=== PATIENT | male | born 1980 | race Caucasian/White ===

== ENCOUNTER 2021-01-23 13:12 | Emergency (ER) | payer OTHER ==
[2021-01-23 13:40] VITALS: RESP 18
--- NOTE | 2021-01-23 15:58 | ED ---
General Adult HPI - General Chief complaint: Urogenital Stated complaint: testicle pain Time Seen by Provider: 01/23/21 15:00 Source: patient, RN notes reviewed, old records reviewed Mode of arrival: ambulatory Limitations: no limitations - History of Present Illness Initial comments: This is a 40-year-old male who presents emergency department stating that since Thursday he has had a swollen scrotum. Patient states it seems more swollen on the left than the right but overall it's much bigger. Patient states about the size of a softball when is normally the size of a lemon. Patient states he believes the left testicle is a little more tender than normal. Patient denies any fever chills patient denies dysuria hematuria urinary frequency. Patient denies any trauma to the testicle he states he did notice at one point he was in a seated position that was extremely tight and he got up after that notices testicle was hurting so to reposition himself and later he noticed a big his scrotum was. Patient denies any history of similar. - Related Data Allergies Allergy/AdvReac Type Severity Reaction Status Date / Time peanut Allergy Rash/Hives Verified 01/23/21 13:40 Review of Systems ROS Statement: Those systems with pertinent positive or pertinent negative responses have been documented in the HPI. ROS Other: All systems not noted in ROS Statement are negative. Past Medical History Past Medical History: No Reported History History of Any Multi-Drug Resistant Organisms: None Reported Past Surgical History: No Surgical Hx Reported Past Psychological History: No Psychological Hx Reported Smoking Status: Never smoker Past Alcohol Use History: Occasional Past Drug Use History: None Reported General Exam - General Exam Comments Initial Comments: GENERAL Patient is well-developed and well-nourished. Patient is in mild distress. EYES Patient's pupils are equal and round. Extraocular motion is intact SKIN Unremarkable GENITALIA On examination scrotum is about 12 cm in diameter appears to be equally distributed testicles can felt on both sides none appeared exquisitely tender or enlarged. NEUROLOGICAL The patient is alert and oriented 3 PYSCH Patient has normal interpersonal interactions. MUSCULOSKELETAL All 4 times and full range of motion Limitations: no limitations Course Vital Signs 01/23/21 13:36 Temperature 98.4 F Pulse Rate 104 H Respiratory 18 Rate Blood Pressure 160/93 Medical Decision Making - Medical Decision Making Ultrasound showed a hydrocele as well as a varicocele. Also shows some edema of the scrotum. Patient's not sure how long there has been edema. Patient will follow-up with urology. Disposition Clinical Impression: Hydrocele, Varicocele Disposition: HOME SELF-CARE Condition: Good Instructions (If sedation given, give patient instructions): Hydrocele (ED), Varicocele (ED) Is patient prescribed a controlled substance at d/c from ED?: No Referrals: Bryant Joaquin MD [STAFF PHYSICIAN] - 1-2 days Time of Disposition: 17:47
--- NOTE | 2021-01-23 16:30 | US ---
EXAMINATION TYPE: US scrotum with doppler. Grayscale and color Doppler Duplex imaging performed of eduardo staton scrotum. DATE OF EXAM: 01/23/2021 COMPARISON: NONE CLINICAL HISTORY: Swollen scrotum. EXAM MEASUREMENTS: TESTICLES: Right Testicle: 5.0 x 2.6 x 3.4 cm Left Testicle: 4.4 x 2.8 x 3.5 cm EPIDIDYMIS HEAD: Right Epididymis: 1.0 x 1.0 cm Left Epididymis: 1.5 x 1.2 cm Doppler performed to assess for testicular vascularity; good bilateral color flow and waveforms are s een. Presence of hydroceles: fluid seen around left testicle Presence of varicoceles: posterior to left testicle, increased flow with valsalva. There is diffuse scrotal sac edema noted. Testicles symmetric and within normal limits in size. Satis factory blood flow bilaterally. More focal inflammatory change felt present posterior to the left marta ticle in the left scrotum with increased vascularity. Small asymmetric left-sided scrotal fluid colle ction or hydrocele. IMPRESSION: As above.
[2021-01-23 19:09] VITALS: BP 134/65; PULSE 72; TEMP 98.1
== END 2021-01-23 18:30 | disposition home or self-care (01) ==
LOC: EC 13:12
DX: N43.3 Hydrocele, unspecified (principal); I86.1 Scrotal varices; Z91.010 Allergy to peanuts
CPT/HCPCS: 76870; 93975; 99284

== ENCOUNTER 2021-08-13 15:50 | Emergency (ER) | payer OTHER ==
[2021-08-13 16:58] VITALS: RESP 18; TEMP 98
[2021-08-13] MEDS ORDERED: ceFAZolin 1,000 MG VIAL (IM USE) IM STA (20:13)
[2021-08-13] MEDS ORDERED: LIDOCAINE 1% INJ 10MG/ML (20 ML MDV) SQ ONE (20:14)
[2021-08-13] MEDS ORDERED: DIPH,PERTUS(ACELL)TETVAC-LF 0.5 ML VIAL IM ONE (20:19)
[2021-08-13] MEDS ORDERED: BUPIVACAINE (PF) 0.5% 30 ML VIAL SQ STA (20:31)
--- NOTE | 2021-08-13 20:33 | XR ---
RESULT: HISTORY: pointer finger injury TECHNIQUE: 3 views of the left index finger were obtained. COMPARISON: None. FINDINGS: There is mildly comminuted and displaced fracture of the index finger distal phalangeal tuft with ove rlying soft tissue injury/defect. No evidence of dislocation. No definite radiopaque foreign body. IMPRESSION: Index finger distal phalangeal tuft fracture with associated soft tissue injury.
[2021-08-13 21:31] VITALS: BP 142/82; PULSE 98
--- NOTE | 2021-08-13 21:52 | ED ---
Wound/Laceration HPI - General Chief Complaint: Wound/Laceration Stated Complaint: LT pointer finger injury Time Seen by Provider: 08/13/21 18:56 Source: patient Mode of arrival: ambulatory Limitations: no limitations - History of Present Illness Initial Comments: Patient is a 41-year-old male who presents to the emergency department with a chief complaint of left index finger injury. Patient was at work today when he cut his finger on a machine. Patient is not on blood thinners. Last tetanus shot is unknown. Patient denies numbness or tingling of the left wrist, left hand, all 5 fingers. He is able to move his left index finger without limitation. - Related Data Previous Rx's Medication Instructions Recorded Cephalexin [Keflex] 500 mg PO Q6HR 7 Days #28 cap 08/13/21 Allergies Allergy/AdvReac Type Severity Reaction Status Date / Time peanut Allergy Rash/Hives Verified 08/13/21 16:58 Review of Systems ROS Statement: Those systems with pertinent positive or pertinent negative responses have been documented in the HPI. ROS Other: All systems not noted in ROS Statement are negative. Past Medical History Past Medical History: No Reported History History of Any Multi-Drug Resistant Organisms: None Reported Past Surgical History: No Surgical Hx Reported Past Psychological History: No Psychological Hx Reported Smoking Status: Never smoker Past Alcohol Use History: Occasional Past Drug Use History: None Reported General Exam Limitations: no limitations Head exam: Present: atraumatic, normocephalic, normal inspection Neck exam: Present: normal inspection Respiratory exam: Present: normal lung sounds bilaterally. Absent: respiratory distress, wheezes, rales, rhonchi, stridor Cardiovascular Exam: Present: normal rhythm, tachycardia GI/Abdominal exam: Present: soft, normal bowel sounds. Absent: distended, tenderness, guarding, rebound, rigid Left Hand Wrist exam: Present: other (Laceration of the posterior distal left index finger across the nail bed. Neurovascularly intact. Range of motion of the left hand and left index finger) Neuro motor exam: Present: wrist extension intact, thumb opposition intact, fingers 2-5 abduction intact Vascular: Present: normal capillary refill. Absent: vascular compromise, pulse deficit radial art, pulse deficit ulnar art Neurological exam: Present: alert, oriented X3, CN II-XII intact Psychiatric exam: Present: normal affect, normal mood Course Vital Signs 08/13/21 08/13/21 16:55 20:10 Temperature 98.0 F Pulse Rate 110 H 98 Respiratory 18 18 Rate Blood Pressure 159/85 142/82 O2 Sat by Pulse 92 L 92 L Oximetry Procedures - Laceration Laceration #1 Consent Obtained: verbal consent Indication: laceration Site: other (Left index finger) Size (cm): 3 Description: irregular Depth: simple, single layer Anesthesia Technique: nerve block (Marcaine ) Pre-repair: wound explored, irrigated extensively, deep structures intact Type of Sutures: nylon, vicryl Size of Sutures: 5-0 Number of Sutures: 8 Technique: simple, interrupted Patient Tolerated Procedure: no complications Additional Comments: 6 nylon sutures were used to approximate the skin. 2 Vicryl sutures were used to approximate the nail. - Orthopedic Splinting/Casting Injury #1 Upper Extremity Injury Location: finger (left index) Upper Extremity Immobilizer: aluminum form splint Medical Decision Making - Medical Decision Making This is a 41-year-old male who presents with left index finger laceration. Thorough history and examination were performed. Patient is neurovascularly intact. He denies numbness and tingling of the left hand and left index finger. He has full range of motion of the left hand and left index finger. Left finger x-ray reveals distal phalangeal tuft fracture with associated soft tissue injury. Patient was given tetanus and Kefzol in the emergency department. The wound was explored and irrigated extensively. A nerve block was performed. I used 6 5-0 nylon sutures to approximate the skin and 2 5-0 Vicryl sutures to approximate the nail bed. There were no complications such as severe pain or bleeding. Wound was then dressed with non-adherent dressing and placed in an aluminum form splint. Patient was prescribed Keflex and wound education was provided. Patient will be discharged with instruction to follow up with lead sustainability specialist at earliest available appointment. Return parameters discussed. Patient verbalizes understanding and is agreeable to plan. Dr. Marin is my attending. Disposition Clinical Impression: Laceration Disposition: HOME SELF-CARE Condition: Good Instructions (If sedation given, give patient instructions): Care For Your Stitches (ED) Additional Instructions: Take antibiotic as prescribed. Follow-up with lead sustainability specialist at earliest available appointment. You may change the wound dressing in 24-48 hours. Return to the emergency department if you experience new, concerning, or worsening symptoms, occluding but not limited to increase redness, swelling, and pain around the wound or fever/chills. Prescriptions: Cephalexin [Keflex] 500 mg PO Q6HR 7 Days #28 cap Is patient prescribed a controlled substance at d/c from ED?: No Referrals: Laureano Trevino DO [Primary Care Provider] - 1-2 days Ritchie Davenport DO [Doctor of Osteopathic Medicine] - 1-2 days Time of Disposition: 21:53
== END 2021-08-13 22:18 | disposition home or self-care (01) ==
LOC: EC 15:50
DX: S61.211A Laceration without foreign body of left index finger without damage to nail, initial encounter (principal); W26.8XXA Contact with other sharp object(s), not elsewhere classified, initial encounter; Y99.0 Civilian activity done for income or pay
CPT/HCPCS: 73140; 90715; 12002; 99283; 96372; 90471; J0690; J2001

== ENCOUNTER 2021-10-11 14:35 | Inpatient (IN) | payer OTHER ==
[2021-10-11 18:44] LABS: Anisocytosis Slight; Basophils # (A) 0.1 k/uL (0-0.2); Basophils % (A) 1 %; Eosinophils # (A) 0.4 k/uL (0-0.7); Eosinophils % (A) 5 %; HGB 16.7 gm/dL (13.0-17.5); Hypochromasia Marked; Lymphocytes # (A) 1.2 k/uL (1.0-4.8); Lymphocytes % (A) 16 %; MCH 24.8 pg (25.0-35.0); MCHC 30.1 g/dL (31.0-37.0); MCV 82.6 fL (80.0-100.0); Mean Platelet Volume 6.6; Monocytes # (A) 0.4 k/uL (0-1.0); Monocytes % (A) 5 %; Neutrophils # (A) 5.5 k/uL (1.3-7.7); Neutrophils % (A) 70 %; Platelet Count 257 k/uL (150-450); Poikilocytosis Slight; RBC 6.72 m/uL (4.30-5.90); RDW 17.3 % (11.5-15.5); WBC 7.8 k/uL (3.8-10.6)
[2021-10-11 18:53] LABS: ALT 18 U/L (4-49); AST 23 U/L (17-59); African American GFR (CKD) >90 (>60 ml/min/1.73 sqM); Albumin 4.1 g/dL (3.5-5.0); Alkaline Phosphatase 83 U/L (38-126); Anion Gap 5 mmol/L; Blood Urea Nitrogen 12 mg/dL (9-20); Calcium 8.7 mg/dL (8.4-10.2); Carbon Dioxide 37 mmol/L (22-30); Chloride 96 mmol/L (98-107); Glucose 90 mg/dL (74-99); Non-African American GFR(CKD) >90 (>60 ml/min/1.73 sqM); Potassium 4.5 mmol/L (3.5-5.1); Sodium 138 mmol/L (137-145); Total Bilirubin 0.7 mg/dL (0.2-1.3)
[2021-10-11 18:56] LABS: HCT 55.5 % (39.0-53.0)
--- NOTE | 2021-10-11 19:16 | XR ---
EXAMINATION TYPE: XR chest 2V DATE OF EXAM: 10/11/2021 6:59 PM COMPARISON: None TECHNIQUE: XR chest 2V Portable AP radiograph of the chest.. CLINICAL INDICATION:Male, 41 years old with history of low pulse ox; FINDINGS: Lungs/Pleura: Low lung volumes are present. Scattered subtle reticular and hazy opacities. No evidenc e of pneumothorax, focal consolidation or pleural effusion. Pulmonary vascularity: Unremarkable. Heart/mediastinum: Cardiomediastinal silhouette is unremarkable. Musculoskeletal: No acute osseous pathology. IMPRESSION: Subtle scattered opacities which may represent an atypical pneumonia.
--- NOTE | 2021-10-11 20:47 | CT ---
EXAMINATION TYPE: CT chest angio for PE CT DLP: 1067.2 mGycm, Automated exposure control for dose reduction was used. DATE OF EXAM: 10/11/2021 8:12 PM COMPARISON: Chest radiograph from same day. CLINICAL INDICATION:Male, 41 years old with history of hypoxia tachycardia; h/o OLIMPIA TECHNIQUE/CONTRAST: CTA scan of the thorax is performed with IV Contrast, patient injected with 90 mL of Isovue 370, pulm onary embolism protocol. MIP images are created and reviewed. FINDINGS: Pulmonary Artery: There is no evidence for a filling defect within the pulmonary vasculature to sugge st acute pulmonary embolism. The pulmonary artery is of normal size. Lungs/Pleura: Scattered air cysts are seen throughout the lung parenchyma. Largest cyst measuring 26 mm Airway: Large airways are patent. Heart: Heart is within normal limits for size.. Vasculature: No evidence of aortic aneurysm. Mediastinum: No gross evidence of adenopathy. Musculoskeletal: No acute osseous abnormalities Soft Tissues: Unremarkable. Lower neck: No significant findings. Upper Abdomen: Partially visualized and enlarged measuring up to at least 15.8 cm. IMPRESSION: 1. No evidence of pulmonary embolism. 2. Scattered thin-walled air cysts are seen throughout the lungs. This is relatively nonspecific find ing. This could represent Langerhans cell histiocytosis, correlate for smoking history. Additional co nsiderations include Lymphangioleiomyomatosis versus other etiologies. Consider follow-up with pulmon ologist.
--- NOTE | 2021-10-11 21:35 | ED ---
General Adult HPI - General Chief complaint: Shortness of Breath Stated complaint: OLIMPIA Time Seen by Provider: 10/11/21 17:54 Source: patient Mode of arrival: ambulatory Limitations: no limitations - History of Present Illness Initial comments: Patient is a 33-year-old male who presents for evaluation of hypoxia. Patient was at his primary care provider today for a routine checkup where his pulse ox was found to be 87% on room air. Patient was then sent to the emergency department. Patient states he is feeling well with no concerns. He denies feve r, chills, upper respiratory symptoms, shortness of breath, chest pain, palpitations, lightheadedness, dizziness, abdominal pain, nausea, vomiting, and leg pain/swelling. Patient denies any past medical history. No history of DVT, PE, or cancer. No family history of DVT or PE. No blood disorders or recent surgery. He denies past and current use of tobacco. 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 He states he is moderately active at work. - Related Data Home Medications Medication Instructions Recorded Confirmed Furosemide [Lasix] 20 mg PO DAILY 10/11/21 10/11/21 Allergies Allergy/AdvReac Type Severity Reaction Status Date / Time peanut Allergy Rash/Hives Verified 10/11/21 18:23 Review of Systems ROS Statement: Those systems with pertinent positive or pertinent negative responses have been documented in the HPI. ROS Other: All systems not noted in ROS Statement are negative. Past Medical History Past Medical History: No Reported History History of Any Multi-Drug Resistant Organisms: None Reported Past Surgical History: No Surgical Hx Reported Past Psychological History: No Psychological Hx Reported Smoking Status: Never smoker Past Alcohol Use History: Occasional Past Drug Use History: None Reported General Exam Limitations: no limitations General appearance: alert, in no apparent distress Head exam: Present: atraumatic, normocephalic, normal inspection Eye exam: Present: normal appearance, PERRL, EOMI. Absent: scleral icterus, conjunctival injection, periorbital swelling Respiratory exam: Present: normal lung sounds bilaterally. Absent: respiratory distress, wheezes, rales, rhonchi, stridor Cardiovascular Exam: Present: normal rhythm, tachycardia. Absent: systolic murmur, diastolic murmur, rubs, gallop, JVD, S3, S4 GI/Abdominal exam: Present: soft, normal bowel sounds. Absent: distended, tenderness, guarding, rebound, rigid Extremities exam: Present: normal inspection, full ROM, normal capillary refill. Absent: tenderness, pedal edema, joint swelling, calf tenderness Neurological exam: Present: alert, oriented X3, CN II-XII intact Psychiatric exam: Present: normal affect, normal mood Skin exam: Present: warm, dry, intact, normal color. Absent: rash Course Vital Signs 10/11/21 10/11/21 10/11/21 14:39 18:30 19:43 Temperature 98.7 F Pulse Rate 107 H 110 H 104 H Respiratory 18 22 20 Rate Blood Pressure 149/76 154/105 148/108 O2 Sat by Pulse 87 L 95 95 Oximetry 10/11/21 20:57 Temperature Pulse Rate 105 H Respiratory 18 Rate Blood Pressure 144/104 O2 Sat by Pulse 95 Oximetry EKG Findings - EKG Comments: EKG Findings:: EKG taken at 18:42. Sinus tachycardia with short [place] interval, possible right ventricular hypertrophy. Ventricular rate 108. [place] interval 116. QRS duration 82. QTC 383 Medical Decision Making - Medical Decision Making This is a 41-year-old otherwise healthy male who presents for evaluation of hypoxia. Thorough history and examination were provided. Patient was at his primary care provider's office today for a routine checkup where his pulse ox was found to be 87% on room air. Patient feels well and has no complaints. Denies history of DVT and PE. During my evaluation patient is tachycardic and hypoxic. Pulse ox is 89% on room air. Patient was placed on 2 L of oxygen supplementation via nasal cannula with improvement in pulse ox. Pulse is 110. Lungs are clear to auscultation bilaterally. There is no erythema, swelling, or tenderness of the bilateral lower extremities. With patient's tachycardia and hypoxia, somewhat sedentary lifestyle, obesity, and normal pulmonary exam, there is concern for pulmonary embolism. CTA of the chest was obtained which showed no evidence of pulmonary embolism. There is scattered thin-walled air cyst seen throughout the lungs which is a relatively nonspecific finding that could represent Langerhans cell histiocytosis. During patient's emergency stay pulse ox did vary from 91% to 96% on 2 L nasal cannula. Patient remained asymptomatic with no shortness of breath or chest pain. Patient was consistently tachycardic in the low 100s. Case discussed with Dr. Jenkins. Patient will be admitted to her service with pulmonary consult. Results discussed with patient who verbalizes understanding and is agreeable to this plan. Dr. Ham is my attending. - Lab Data Result diagrams: 10/11/21 18:23 10/11/21 18:23 Lab Results 10/11/21 10/11/21 10/11/21 Range/Units 18:23 18:23 20:00 WBC 7.8 (3.8-10.6) k/uL RBC 6.72 H (4.30-5.90) m/uL Hgb 16.7 (13.0-17.5) gm/dL Hct 55.5 H (39.0-53.0) % MCV 82.6 (80.0-100.0) fL MCH 24.8 L (25.0-35.0) pg MCHC 30.1 L (31.0-37.0) g/dL RDW 17.3 H (11.5-15.5) % Plt Count 257 (150-450) k/uL MPV 6.6 Neutrophils % 70 % Lymphocytes % 16 % Monocytes % 5 % Eosinophils % 5 % Basophils % 1 % Neutrophils # 5.5 (1.3-7.7) k/uL Lymphocytes # 1.2 (1.0-4.8) k/uL Monocytes # 0.4 (0-1.0) k/uL Eosinophils # 0.4 (0-0.7) k/uL Basophils # 0.1 (0-0.2) k/uL Hypochromasia Marked Poikilocytosis Slight Anisocytosis Slight D-Dimer 0.33 (<0.60) mg/L FEU Sodium 138 (137-145) mmol/L Potassium 4.5 (3.5-5.1) mmol/L Chloride 96 L (98-107) mmol/L Carbon Dioxide 37 H (22-30) mmol/L Anion Gap 5 mmol/L BUN 12 (9-20) mg/dL Creatinine 0.64 L (0.66-1.25) mg/dL Est GFR (CKD-EPI)AfAm >90 (>60 ml/min/1.73 sqM) Est GFR (CKD-EPI)NonAf >90 (>60 ml/min/1.73 sqM) Glucose 90 (74-99) mg/dL Calcium 8.7 (8.4-10.2) mg/dL Total Bilirubin 0.7 (0.2-1.3) mg/dL AST 23 (17-59) U/L ALT 18 (4-49) U/L Alkaline Phosphatase 83 (38-126) U/L Total Protein 8.0 (6.3-8.2) g/dL Albumin 4.1 (3.5-5.0) g/dL Disposition Clinical Impression: Hypoxia, Tachycardia Disposition: ADMITTED IP TO THIS HOSP Condition: Fair Referrals: Laureano Trevino DO [Primary Care Provider] - 1-2 days Decision Time: 22:36
[2021-10-12] MEDS: FUROSEMIDE 20 MG TAB PO SCH (12:55)
--- NOTE | 2021-10-12 13:07 | P.CNPUL ---
History of Present Illness Consult date: 10/12/21 Requesting physician: Erna Jenkins Reason for consult: hypoxemia Chief complaint: Shortness of breath History of present illness: This is a pleasant morbidly obese 41-year-old male patient with a known history of chronic lower extremity edema, recent diagnosis of obstructive sleep apnea and was initiated on CPAP. While at his PCPs office for regular checkup he was found to be hypoxemic with an O2 saturation of 87% on room air. He was referred here to the emergency room for the same. He denied any shortness of breath, cough or congestion. No fever or chills. No hemoptysis. Chest x-ray revealed subtle scattered opacities representing possibly an atypical pneumonia. CT angiogram ruled out pulmonary embolism. There was scattered thin-walled air cysts seen throughout the lungs. Nonspecific findings. Within the differential possible Langerhans cell histiocytosis or possibly lymphangioleiomyomatosis. He is a lifelong nonsmoker. White count 7.8. Hemoglobin 16.7. Platelets 257. D- dimer 0.33. Sodium 138. Potassium 4.5. BUN 12. Creatinine 0.63. Butcher virus by PCR not detected. He is seen today in consultation on the regular medical floor. He is currently resting comfortably in bed. Awake and alert in no acute distress. He denies any shortness of breath, cough or congestion. No fever chills. He is maintaining O2 saturations in the 90s on 6 L nasal cannula. He is continued on oral Lasix. Review of Systems REVIEW OF SYSTEMS: CONSTITUTIONAL: Denies any recent significant weight loss or weight gain. EYES: Denies change in vision. EARS, NOSE, MOUTH, THROAT: Denies headaches, denies sore throat. CARDIOVASCULAR: Denies chest pain, palpitations or syncopal episodes. RESPIRATORY: Denies shortness of breath, cough, congestion or hemoptysis. GASTROINTESTINAL: Denies change in appetite, denies abdominal pain GENITOURINARY: Denies hematuria, denies infections. MUSKULOSKELETAL: Denies pain, denies swelling. INTEGUMENTARY: Denies rash, denies eczema. NEUROLOGICAL: Denies recent memory loss, no recent seizure activity. PSYCHIATRIC: Denies anxiety, denies depression. HEMATOLOGIC/LYMPHATIC: Denies anemia, denies enlarged lymph nodes. Past Medical History Past Medical History: Asthma History of Any Multi-Drug Resistant Organisms: None Reported Past Surgical History: No Surgical Hx Reported Additional Past Anesthesia/Blood Transfusion Reaction / Comment(s): never recieved blood or anesthesia Past Psychological History: No Psychological Hx Reported Smoking Status: Never smoker Past Alcohol Use History: Occasional Past Drug Use History: None Reported - Past Family History Mother Family Medical History: Diabetes Mellitus Father Family Medical History: Asthma, Coronary Artery Disease (CAD), Myocardial Infarction ([place]) Medications and Allergies Home Medications Medication Instructions Recorded Confirmed Type Furosemide [Lasix] 20 mg PO DAILY 10/11/21 10/11/21 History Allergies Allergy/AdvReac Type Severity Reaction Status Date / Time peanut Allergy Rash/Hives Verified 10/11/21 18:23 Physical Exam Vitals: Vital Signs Temp Pulse Pulse Pulse Resp BP BP 10/12/21 07:29 98.4 F 85 17 108/55 10/12/21 01:57 97.7 F 102 H 18 139/87 10/12/21 00:06 92 20 10/11/21 22:58 92 18 155/95 10/11/21 22:13 101 H 18 155/94 10/11/21 20:57 105 H 18 144/104 10/11/21 19:43 104 H 20 148/108 10/11/21 18:30 110 H 22 154/105 10/11/21 14:39 98.7 F 107 H 18 149/76 Pulse Ox 10/12/21 07:29 94 L 10/12/21 01:57 98 10/12/21 00:06 10/11/21 22:58 93 L 10/11/21 22:13 95 10/11/21 20:57 95 10/11/21 19:43 95 10/11/21 18:30 95 10/11/21 14:39 87 L Intake and Output 10/11/21 10/12/21 10/12/21 22:59 06:59 14:59 Other: # Voids 0 Weight 166.922 kg GENERAL EXAM: Alert, pleasant, morbidly obese 41-year-old male patient on 6 L nasal cannula, comfortable in no apparent distress. HEAD: Normocephalic. EYES: Normal reaction of pupils, equal size. NOSE: Clear with pink turbinates. THROAT: No erythema or exudates. NECK: No masses, no JVD. CHEST: No chest wall deformity. LUNGS: Equal air entry with no crackles, wheeze, rhonchi or dullness. CVS: S1 and S2 normal with no audible murmur, regular rhythm. ABDOMEN: No hepatosplenomegaly, normal bowel sounds, no guarding or rigidity. SPINE: No scoliosis or deformity SKIN: No rashes CENTRAL NERVOUS SYSTEM: No focal deficits, tone is normal in all 4 extremities. EXTREMITIES: Changes of chronic venous stasis. There is 1+ peripheral edema. Peripheral pulses are intact. Results - Laboratory Findings CBC and BMP: 10/11/21 18:23 10/11/21 18:23 PT/INR, D-dimer D-Dimer 0.33 mg/L FEU (<0.60) 10/11/21 20:00 Abnormal lab findings: Abnormal Labs 10/11/21 10/11/21 18:23 18:23 RBC 6.72 H Hct 55.5 H MCH 24.8 L MCHC 30.1 L RDW 17.3 H Chloride 96 L Carbon Dioxide 37 H Creatinine 0.64 L - Diagnostic Findings Chest x-ray: image reviewed CT scan - chest: image reviewed Assessment and Plan Assessment: 1 Acute hypoxemic respiratory failure secondary to morbid obesity with hypoventilation syndrome and obstructive sleep apnea 2 Severe obstructive sleep apnea with an AHI of 51. Initiated on CPAP just this week 3 Morbid obesity with a BMI of 56.0 kg/m 4 Possible pulmonary hypertension from THOMAS. Echocardiogram pending 5 Scattered thin-walled air cysts seen throughout the lungs. Nonspecific finding. Doubt Langerhans' cell histiocytosis, lifelong nonsmoker 6 Chronic lower extremity edema with changes of chronic venous stasis 7 Polycythemia secondary to above Plan: The patient was seen and evaluated Chest x-ray, CAT scan and labs reviewed Cleared for discharge from the pulmonary standpoint Will need to be evaluated for home oxygen Educated regarding the importance of compliance with the CPAP Follow-up in our office with Dr. Moreno I have personally seen and examined the patient, performed the documentation and the assessment and plan as written. Number of minutes spent on the visit: 10.
--- NOTE | 2021-10-12 15:07 | CA ---
Transthoracic Echo Report Name: Alvaro Robbins Age: 41 Gender: M : 1980 Exam Date: 10/12/2021 07:34 Exam Location: [facility] Ht (in): 68 Wt (lb): 368 Ordering Physician: Isabelle Marino MD Attending/Referring Phys: [employer] Maintenance Supervisor Gloria Flores RDCS Procedure CPT: Indications: pulm htn hypoxia Cardiac Hx: Technical Quality: Technically difficult study Contrast 1: Lumason Total Dose (mL): 4 Contrast 2: Total Dose (mL): MEASUREMENTS (Male / Female) Normal Values 2D ECHO LV Diastolic Diameter PLAX 3.6 cm 4.2 - 5.9 / 3.9 - 5.3 cm LV Systolic Diameter PLAX 2.5 cm IVS Diastolic Thickness 1.8 cm 0.6 - 1.0 / 0.6 - 0.9 cm LVPW Diastolic Thickness 1.6 cm 0.6 - 1.0 / 0.6 - 0.9 cm LV Relative Wall Thickness 1.0 RV Internal Dim ED PLAX 3.5 cm LA Systolic Diameter LX 3.9 cm 3.0 - 4.0 / 2.7 - 3.8 cm M-MODE Aortic Root Diameter MM 3.7 cm MV E Point Septal Separation 1.1 cm AV Cusp Separation MM 2.3 cm DOPPLER AV Peak Velocity 147.2 cm/s AV Peak Gradient 8.7 mmHg MV Area PHT 3.4 cm??? Mitral E Point Velocity 102.6 cm/s Mitral A Point Velocity 98.8 cm/s Mitral E to A Ratio 1.0 MV Deceleration Time 220.4 ms MV E' Velocity 7.4 cm/s Mitral E to MV E' Ratio 13.8 TR Peak Velocity 268.7 cm/s TR Peak Gradient 28.9 mmHg Right Ventricular Systolic Press 33.9 mmHg FINDINGS Left Ventricle Left ventricular ejection fraction is estimated at 60-65 %. Left ventricular cavity size normal. No obvious regional wall motion abnormalities. Severe concentric left ventricular hypertrophy. Right Ventricle Mild right ventricular dilatation. Mild pulmonary hypertension. Right Atrium Normal right atrial size. Left Atrium Normal left atrial size. Mitral Valve Mitral annular calcification. Structurally normal mitral valve. No mitral stenosis, regurgitation or prolapse. Aortic Valve Trileaflet aortic valve. No aortic valve stenosis or regurgitation. Tricuspid Valve Mild tricuspid regurgitation. Pulmonic Valve Trace pulmonic regurgitation. Pericardium No pericardial effusion. Aorta Normal size aortic root and proximal ascending aorta. CONCLUSIONS Technically difficult study for interpretation The ejection fraction appears to be within normal limits. Definity was used The right ventricle appeared to be dilated Thickened mitral valve leaflets Previewed by: Dr. Bubba Terry MD (Electronically Signed) Final Date: 12 Oct 2021 15:05
--- NOTE | 2021-10-12 21:29 | P.HPIM ---
History of Present Illness H&P Date: 10/12/21 Chief Complaint: Shortness of breath 41-year-old male patient with a known history of chronic lower extremity edema, recent diagnosis of obstructive sleep apnea and was initiated on CPAP. While at his PCPs office for regular checkup he was found to be hypoxemic with an O2 sa turation of 87% on room air. He was referred here to the emergency room for the same. He denied any shortness of breath, cough or congestion. No fever or chills. No hemoptysis. Chest x-ray revealed subtle scattered opacities representing possibly an atypical pneumonia. CT angiogram ruled out pulmonary embolism. There was scattered thin-walled air cysts seen throughout the lungs. Nonspecific findings. Within the differential possible Langerhans cell histiocytosis or possibly lymphangioleiomyomatosis. He is a lifelong nonsmoker. White count 7.8. Hemoglobin 16.7. Platelets 257. D-dimer 0.33. Sodium 138. Potassium 4.5. BUN 12. Creatinine 0.63. Butcher virus by PCR not detected. He is seen today in consultation on the regular medical floor. He is currently resting comfortably in bed. Awake and alert in no acute distress. He denies any shortness of breath, cough or congestion. No fever chills. He is maintaining O2 saturations in the 90s on 6 L nasal cannula. Review of Systems REVIEW OF SYSTEMS: CONSTITUTIONAL: No fever, no malaise, no fatigue. HEENT: No recent visual problems or hearing problems. Denied any sore throat. CARDIOVASCULAR: No chest pain, orthopnea, PND, no palpitations, no syncope. PULMONARY: No shortness of breath, no cough, no hemoptysis. GASTROINTESTINAL: No diarrhea, no nausea, no vomiting, no abdominal pain. NEUROLOGICAL: No headaches, no weakness, no numbness. HEMATOLOGICAL: Denies any bleeding or petechiae. GENITOURINARY: Denies any burning micturition, frequency, or urgency. MUSCULOSKELETAL/RHEUMATOLOGICAL: Denies any joint pain, swelling, or any muscle pain. ENDOCRINE: Denies any polyuria or polydipsia. The rest of the 14-point review of systems is negative. Past Medical History Past Medical History: Asthma History of Any Multi-Drug Resistant Organisms: None Reported Past Surgical History: No Surgical Hx Reported Additional Past Anesthesia/Blood Transfusion Reaction / Comment(s): never recieved blood or anesthesia Past Psychological History: No Psychological Hx Reported Smoking Status: Never smoker Past Alcohol Use History: Occasional Past Drug Use History: None Reported - Past Family History Mother Family Medical History: Diabetes Mellitus Father Family Medical History: Asthma, Coronary Artery Disease (CAD), Myocardial Infarction ([place]) Medications and Allergies Home Medications Medication Instructions Recorded Confirmed Type Furosemide [Lasix] 20 mg PO DAILY 10/11/21 10/11/21 History Allergies Allergy/AdvReac Type Severity Reaction Status Date / Time peanut Allergy Rash/Hives Verified 10/11/21 18:23 Physical Exam Vitals: Vital Signs Temp Pulse Pulse Pulse Resp BP BP 10/12/21 07:29 98.4 F 85 17 108/55 10/12/21 01:57 97.7 F 102 H 18 139/87 10/12/21 00:06 92 20 10/11/21 22:58 92 18 155/95 10/11/21 22:13 101 H 18 155/94 10/11/21 20:57 105 H 18 144/104 10/11/21 19:43 104 H 20 148/108 10/11/21 18:30 110 H 22 154/105 10/11/21 14:39 98.7 F 107 H 18 149/76 Pulse Ox 10/12/21 07:29 94 L 10/12/21 01:57 98 10/12/21 00:06 10/11/21 22:58 93 L 10/11/21 22:13 95 10/11/21 20:57 95 10/11/21 19:43 95 10/11/21 18:30 95 10/11/21 14:39 87 L Intake and Output 10/11/21 10/12/21 10/12/21 22:59 06:59 14:59 Other: # Voids 0 Weight 166.922 kg PHYSICAL EXAMINATION: GENERAL: The patient is alert and oriented x3, not in any acute distress. Well developed, well nourished. HEENT: Pupils are round and equally reacting to light. EOMI. No scleral icterus. No conjunctival pallor. Normocephalic, atraumatic. No pharyngeal erythema. No thyromegaly. CARDIOVASCULAR: S1 and S2 present. No murmurs, rubs, or gallops. PULMONARY: Chest is clear to auscultation, no wheezing or crackles. ABDOMEN: Soft, nontender, nondistended, normoactive bowel sounds. No palpable organomegaly. MUSCULOSKELETAL: No joint swelling or deformity. EXTREMITIES: No cyanosis, clubbing, or pedal edema. NEUROLOGICAL: Gross neurological examination did not reveal any focal deficits. SKIN: No rashes. Results CBC & Chem 7: 10/11/21 18:23 10/11/21 18:23 Labs: Abnormal Lab Results - Last 24 Hours (Table) 10/11/21 10/11/21 Range/Units 18:23 18:23 RBC 6.72 H (4.30-5.90) m/uL Hct 55.5 H (39.0-53.0) % MCH 24.8 L (25.0-35.0) pg MCHC 30.1 L (31.0-37.0) g/dL RDW 17.3 H (11.5-15.5) % Chloride 96 L (98-107) mmol/L Carbon Dioxide 37 H (22-30) mmol/L Creatinine 0.64 L (0.66-1.25) mg/dL Thrombosis Risk Factor Assmnt - Choose All That Apply Each Factor Represents 1 point: Obesity (BMI >25) Other Risk Factors: No Other congenital or acquired thrombophilia - If yes, enter type in comment: No Thrombosis Risk Factor Assessment Total Risk Factor Score: 1 Thrombosis Risk Factor Assessment Level: Low Risk Assessment and Plan Assessment: 1. Acute hypoxemic respiratory failure; multifactorial - Morbid obesity with hypoventilation syndrome/ obstructive sleep apnea - Patient worked up for obstructive sleep apnea as outpatient and initiated on CPAP this week - Patient evaluated by pulmonary and recommending discharge on oxygen as needed and follow-up with pulmonary as outpatient 2. Morbid obesity; BMI of 56; counseling done on need for weight reduction 3. Abnormal CT chest; Scattered thin-walled air cysts seen throughout the lungs. Patient evaluated by pulmonary. Doubt Langerhans' cell histiocytosis, lifelong nonsmoker 4. Polycythemia; related to pulmonary hypertension and obstructive sleep apnea
[2021-10-13] MEDS: FUROSEMIDE 20 MG TAB PO SCH (08:19)
[2021-10-13 14:05] VITALS: BP 139/84; PULSE 82; RESP 19; TEMP 98
== END 2021-10-13 14:28 | disposition home or self-care (01) | DRG 189 ==
LOC: EC 14:35 → 4SSUR 22:24
PROVIDERS: ADMIT Internal Medicine; ATTEND Internal Medicine
DX: J96.01 Acute respiratory failure with hypoxia (principal); E66.2 Morbid (severe) obesity with alveolar hypoventilation; Z68.43 Body mass index [BMI] 50.0-59.9, adult; D75.1 Secondary polycythemia; M19.90 Unspecified osteoarthritis, unspecified site; I27.20 Pulmonary hypertension, unspecified; J45.909 Unspecified asthma, uncomplicated; I87.8 Other specified disorders of veins; Z90.89 Acquired absence of other organs; Z28.310 Unvaccinated for COVID-19; Z20.822 Contact with and (suspected) exposure to COVID-19; Z82.5 Family history of asthma and other chronic lower respiratory diseases; Z83.3 Family history of diabetes mellitus; Z79.899 Other long term (current) drug therapy; Z82.49 Family history of ischemic heart disease and other diseases of the circulatory system; Z91.010 Allergy to peanuts; Z71.3 Dietary counseling and surveillance
CPT/HCPCS: 36415; 71046; 71275; 80053; 85025; 85379; 87635; 93005; 93306; 99285